=== PATIENT | female | born 1980 | race Caucasian/White ===

== ENCOUNTER 2017-08-31 17:43 | Emergency (ER) | payer BC ==
[~2017-08-31] VITALS: Ht 160 cm; Wt 101.6 kg
[~2017-08-31 17:43] MED LIST: AMBIEN PO; CELEXA 10 MG TA10 M1 PO; GEODON OR; GLUCOPHAGE500 MG PO; IBUPROFEN 600600 M1 PO; NAPROSYN375 MG PO; VALIUM5 MG PO
[2017-08-31 17:53] VITALS: BP 141/89
[2017-08-31] MEDS ORDERED: LITHIUM CARBON600 MG PO (17:58)
[2017-08-31] MEDS ORDERED: FLEXERIL PO (18:17)
[2017-08-31] MEDS ORDERED: VENTOLIN HFA 1818 GM INH (18:17)
== END 2017-08-31 18:27 | disposition home or self-care (01) ==
LOC: M.ERS 17:43
DX: G89.29 Other chronic pain (principal); M54.9 Dorsalgia, unspecified; E11.649 Type 2 diabetes mellitus with hypoglycemia without coma; Z90.710 Acquired absence of both cervix and uterus; Z88.0 Allergy status to penicillin; Z88.5 Allergy status to narcotic agent; Z88.8 Allergy status to other drugs, medicaments and biological substances

== ENCOUNTER 2017-09-03 13:18 | Emergency (ER) | payer BC ==
[~2017-09-03] VITALS: Ht 160 cm; Wt 104.5 kg
[~2017-09-03 13:18] MED LIST changes: +FLEXERIL PO; +LITHIUM CARBON600 MG PO; +VENTOLIN HFA 1818 GM INH
[2017-09-03 14:02] LABS: ABSOLUTE LYMPHOCYTES 1.6 thou/uL (0.8-5.3); ABSOLUTE MONOCYTES 0.7 thou/uL (0.0-1.2); ABSOLUTE NEUTROPHILS 6.4 thou/uL (1.6-8.1); BASOPHILS 0.1 %; EOSINOPHILS 0.2 %; HEMATOCRIT 33.1 % (37.0-47.0); HEMOGLOBIN 10.6 gm/dL (12.0-15.0); LYMPHOCYTES 18.2 %; MCH 24.3 pg (26.0-34.0); MONOCYTES 7.8 %; MPV 7.3 fl. (7.2-11.1); NUCLEATED RBCS 0 /100WBC; PLATELET COUNT* 321 thou/uL (150-400); POLYS 73.7 %; RBC 4.36 mil/uL (4.20-5.00); RDW-CV 19.7 % (10.5-14.5); WBC 8.7 thou/uL (4.0-11.0)
[2017-09-03 14:16] LABS: CALCIUM 8.6 mg/dL (8.5-10.1); CREATININE 0.7 mg/dL (0.6-1.3); POTASSIUM 3.6 mmol/L (3.5-5.1)
[2017-09-03 14:21] LABS: ALBUMIN 3.8 g/dL (3.4-5.0); TOTAL BILIRUBIN 0.3 mg/dL (<0.1-1.0); TOTAL PROTEIN 7.4 g/dL (6.4-8.2)
[2017-09-03 14:23] LABS: URINE BILIRUBIN NEGATIVE (Negative); URINE BLOOD TRACE (Negative); URINE CLARITY CLEAR; URINE COLOR YELLOW; URINE GLUCOSE-RANDOM NEGATIVE (Negative); URINE KETONES NEGATIVE (Negative); URINE LEUKOCYTES-REFLEX NEGATIVE (Negative); URINE NITRITE-REFLEX NEGATIVE (Negative); URINE PROTEIN NEGATIVE (Negative); URINE UROBILINOGEN 0.2 E.U./dl (0.2-1.0)
[2017-09-03] MEDS ORDERED: IRON325 PO (15:40)
[2017-09-03 16:01] VITALS: BP 136/96
== END 2017-09-03 16:02 | disposition home or self-care (01) ==
LOC: M.ERS 13:18
PROVIDERS: Nurse Practitioner Family
DX: R42 Dizziness and giddiness (principal); D64.9 Anemia, unspecified; E11.9 Type 2 diabetes mellitus without complications; Z98.890 Other specified postprocedural states; Z90.711 Acquired absence of uterus with remaining cervical stump; Z88.8 Allergy status to other drugs, medicaments and biological substances; Z88.5 Allergy status to narcotic agent; Z88.0 Allergy status to penicillin